=== PATIENT | female | born 1935 | race Hispanic/Latino ===

== ENCOUNTER 2023-08-24 12:52 | Emergency (ER) | payer MEDICARE ==
[~2023-08-24] VITALS: Ht 160 cm; Wt 63.5 kg
[~2023-08-24 12:52] MED LIST: AMLO-257 PO; ASPI-1012 PO; FLUO10TA35 PO; HYDR-4457 PO; LEVO88TA7 PO; PANT40TA54 PO
[2023-08-24] MEDS: MECLIZINE HCL 25 MG TABLET PO ONE (13:28)
[2023-08-24 14:02] LABS: APPEARANCE,URINE CLEAR (CLEAR); BILIRUBIN,URINE NEGATIVE (NEGATIVE); COLOR,URINE COLORLESS (YELLOW); GLUCOSE, URINE (UA) NEGATIVE (NEGATIVE); KETONES,URINE NEGATIVE (NEGATIVE); LEUKOCYTE ESTERASE ,URINE 25 Leu/uL (NEGATIVE); NITRATE,URINE NEGATIVE (NEGATIVE); OCCULT BLOOD,URINE NEGATIVE (NEGATIVE); PROTEIN,URINE NEGATIVE (NEGATIVE); UROBILINOGEN,URINE 0.2 mg/dL (0.2-1.0)
[2023-08-24 14:04] LABS: ADD UA MICROSCOPIC YES
[2023-08-24 14:05] LABS: HEMATOCRIT 41.5 % (36-48); MEAN CORPUSCULAR HEMOGLOBIN 29.4 pg (27.0-33.0); MEAN CORPUSCULAR HGB CONC 32.8 g/dL (32.0-36.0); MEAN CORPUSCULAR VOLUME 89.6 fL (79-99); RED BLOOD CELL COUNT(AUTO) 4.63 MIL/uL (4.00-5.50); WHITE BLOOD COUNT (AUTO) 6.5 K/uL (4.8-10.8)
[2023-08-24 14:08] LABS: BACTERIA,URINE RARE /HPF (None Seen)
[2023-08-24 14:13] LABS: CREATININE 0.5 mg/dL (0.5-1.0); POTASSIUM 3.6 mmol/L (3.5-5.1)
[2023-08-24] MEDS ORDERED: MECL-160 PO (15:07)
[2023-08-24] MEDS ORDERED: CEPH500B PO (15:07)
[2023-08-24] MEDS: CEPHALEXIN 500 MG CAPSULE PO ONE (15:19)
[2023-08-24 15:20] VITALS: BP 152/79; PULSE 81; RESP 16; O2SAT 99
== END 2023-08-24 15:33 | disposition home or self-care (01) ==
LOC: EDH 12:52
DX: N39.0 Urinary tract infection, site not specified (principal); R42 Dizziness and giddiness; I10 Essential (primary) hypertension; Z79.82 Long term (current) use of aspirin; Z79.890 Hormone replacement therapy; Z79.899 Other long term (current) drug therapy
CPT/HCPCS: 36415; 80048; 81001; 84484; 85027; 87077; 87088; 87186; 93005